=== PATIENT | female | born 1985 | race Caucasian/White ===

== ENCOUNTER 2017-05-23 17:51 | Emergency (ER) | payer OTHER ==
[~2017-05-23] VITALS: Ht 157.5 cm; Wt 78.0 kg
[2017-05-23 18:00] VITALS: Ht 157.5 cm; Wt 78.0 kg
[2017-05-23] MEDS ORDERED: SOD CHLORIDE 0.9% 1,000 ML IV STA (19:10)
[2017-05-23] MEDS ORDERED: KETOROLAC 15 MG INJ IV STA (19:10)
[2017-05-23] MEDS ORDERED: FAMOTIDINE 20 MG INJ IV STA (19:10)
[2017-05-23] MEDS ORDERED: ONDANSETRON 4 MG INJ IV STA (19:10)
--- NOTE | 2017-05-23 19:10 | ERD ---
ER Documentation Chief Complaint Date/Time DATE: 05/23/17 TIME: 19:06 Chief Complaint ap today HPI This 32-year-old female presents to emergency department with complaint of chronic ABD pain. s/p treatment for HPylori 12 months ago. no F/U Pt reports epigastric pressure and pain relived by belching denies dysyria, or blood in stool. denies vomiting LMP the beginning of month ROS All systems reviewed and are negative except as per history of present illness. PMhx/Soc Medical and Surgical Hx: pt denies Medical Hx, pt denies Surgical Hx Hx Alcohol Use: No Hx Substance Use: No Hx Tobacco Use: No Smoking Status: Never smoker Physical Exam Vitals Vital Signs Date Time Temp Pulse Resp B/P Pulse Ox O2 Delivery O2 Flow Rate FiO2 05/23/17 18:00 98.1 85 18 106/58 99 VSS triage notes reviewed Physical Exam Const: Well-nourished, well-appearing, well-hydrated, obvious discomfort holding stomach with tears running down face. No acute distress Head: Eyes: ENT: Normal External Ears, Nose and Mouth mucous membranes pharynx is pink, uvula midline without shift, tonsils not visualized Neck: Resp: Clear to auscultation bilaterally no rales wheezes or rhonchi Cardio: S1-S2, no S3-S4 Abd: Soft, tympanic to percussion, epigastric and periumbilical tenderness. Negative Marrufo sign, negative psoas sign Skin: Back: No midline or flank tenderness Ext: Neur: Awake and alert Psych: Normal Mood and Affect Result Diagram: 05/23/17200405/23/172004 Results 24 hrs Laboratory Tests Test 05/23/17 20:05 05/23/17 21:01 White Blood Count 12.810^3/ul Red Blood Count 3.9710^6/ul Hemoglobin 12.0g/dl Hematocrit 36.1% Mean Corpuscular Volume 90.9fl Mean Corpuscular Hemoglobin 30.2pg Mean Corpuscular Hemoglobin Concent 33.2g/dl Red Cell Distribution Width 12.5% Platelet Count 74083^3/UL Mean Platelet Volume 10.8fl Neutrophils % 77.3% Lymphocytes % 15.4% Monocytes % 6.4% Eosinophils % 0.5% Basophils % 0.2% Nucleated Red Blood Cells % 0.0/100WBC Neutrophils # (Manual) 1010^3/ul Lymphocytes # 2.010^3/ul Monocytes # 0.810^3/ul Eosinophils # 0.110^3/ul Basophils # 0.010^3/ul Nucleated Red Blood Cells # 0.010^3/ul Sodium Level 146mmol/L Potassium Level 3.7mmol/L Chloride Level 103mmol/L Carbon Dioxide Level 26mmol/L Anion Gap 21 Blood Urea Nitrogen 9mg/dl Creatinine 0.58mg/dl Glucose Level 91mg/dl Calcium Level 9.8mg/dl Total Bilirubin 0.1mg/dl Direct Bilirubin 0.00mg/dl Indirect Bilirubin 0.1mg/dl Aspartate Amino Transf (AST/SGOT) 96IU/L Alanine Aminotransferase (ALT/SGPT) 60IU/L Alkaline Phosphatase 81IU/L Troponin I < 0.012ng/ml Total Protein 8.4g/dl Albumin 4.6g/dl Globulin 3.80g/dl Albumin/Globulin Ratio 1.21 Lipase 150U/L Bedside Urine pH (LAB) 6.0 Bedside Urine Protein (LAB) 1+ Bedside Urine Glucose (UA) Negative Bedside Urine Ketones (LAB) Trace Bedside Urine Blood Negative Bedside Urine Nitrite (LAB) Negative Bedside Urine Leukocyte Esterase (L Negative Current Medications Medications (Trade) Dose Ordered Sig/Marty Route PRN Reason Start Time Stop Time Status Last Admin Dose Admin Sodium Chloride (NS) 1,000 ml @ 1,000 mls/hr Q1H STAT IV 05/23/17 19:10 05/23/17 20:09 DC 05/23/17 20:03 Ondansetron HCl (Zofran Inj) 4 mg ONCE STAT IV 05/23/17 19:10 05/23/17 19:14 DC 05/23/17 20:02 Famotidine (Pepcid Iv) 20 mg ONCE STAT IV 05/23/17 19:10 05/23/17 19:14 DC 05/23/17 20:02 Ketorolac Tromethamine (Toradol) 15 mg ONCE STAT IV 05/23/17 19:10 05/23/17 19:14 DC 05/23/17 20:02 Interpretation text CBC shows no evidence of hemorrhage WBCs slightly elevated at 12.8. Chemistry shows no evidence of significant electrolyte abnormalities or renal insufficiency sodium mildly elevated at 144 Liver function tests shows AST 96, ALT normal at 60, alk phos normal at 81. Coagulation study showed no concerning coagulpathy Lipase shows no evidence of acute pancreatitis Cardiac biomarkers show no evidence of acute myocardial injury or coronary ischemia Procedures/MDM EKG: Read by Dr. EATON Rate/Rhythm: Normal Sinus Rhythm at a ventricular rate of 73 bpm no ectopy QRS, ST, T-waves: No changes consistent w/ acute ischemia Impression: No evidence of ischemia or arrhythmia PROCEDURE: Ultrasound of the abdomen. CLINICAL INDICATION: Right upper quadrant pain. TECHNIQUE: Sonographic images of the abdomen were performed. COMPARISON: No pertinent prior examinations were submitted for comparison. FINDINGS: Liver: The liver is normal in echogencity and size measuring approximately 14.4 cm. The hepatic veins and portal veins are patent with appropriate directional flow. No intrahepatic ductal dilatation is seen. Gallbladder: The gallbladder is filled with stones. No pericholecystic free fluid or definite gallbladder wall thickening is identified. The common duct measures 3.1 mm. Negative sonographic Marrufo's sign is reported. Pancreas: There is limited evaluation of the pancreatic body and tail. The visualized portions of the pancreas are unremarkable. Kidneys: The right kidney measures 8.3 cm. There is normal corticomedullary differentiation. There is no evidence of renal calculus or hydronephrosis. IVC: The visualized portion of the inferior vena cava is unremarkable. Aorta: Normal in size. Free fluid: None. IMPRESSION: Cholelithiasis. .Luis Mansfield MD, MD Date Time Electronically viewed and signed by .Luis Mansfield MD, on 05/23/2017 20:40 .T/ This 32-year-old female presents to emergency department with abdominal pain, epigastric pain and pressure, pain is radiating bilaterally across to back. Patient reports symptoms have been treated 12 months ago with antibiotics suspected H pylori patient is unsure is currently on no medication and had no follow-up. Patient reports nausea, foul bitter taste in her mouth, abdominal pain bloating and belching. I have little clinical suspicion for acute OH, abdominal aortic aneurysm dissection, or pulmonary embolism. A EKG is obtained regardless showing normal sinus rhythm at a ventricular rate of 73 beats per minutes, cardiac biomarkers are normal without elevation. Remaining serology shows no acute infection or anemia slight elevation in WBCs, hyper natremia at 146. AST elevated at 96. I have little clinical suspicion for pancreatitis, appendicitis, biliary colic. Pyelonephritis, or urinary tract infection. Ultrasound reveals gallbladder is filled with stones. No pericholecystic free fluid or definite gallbladder wall thickening is identified. The common bile duct measures 3.1 mm negative sonographic Marrufo sign is reported Patient's pain is treated in emergency department with Toradol, she receives 1 L of normal saline, IV Pepcid, Zofran, and reports feeling improvement of symptoms after interventions complete. Patient will be discharged home with Bentyl for pain. Instructed to follow-up with primary physician in the next 24- 48 hours to discuss long-term treatment and options for cholelithiasis treatment. Return to emergency department for increased nausea, vomiting, pain , fever. I feel the patient is stable for discharge at this time. I have discussed results, examination findings, the treatment plan with the patient and family present prior to discharge. Indications for emergent reevaluation, side effects of medication were also discussed. All questions were answered. Patient verbalizes understanding and agrees with plan of care. Departure Diagnosis: Primary Impression: Cholelithiasis Cholelithiasis location: gallbladder Cholecystitis presence: without cholecystitis Biliary obstruction: without biliary obstruction Qualified Code : K80.20 - Calculus of gallbladder without cholecystitis without obstruction Condition: Good Patient Instructions: Gallstones [facility] Additional Instructions: Thank you for for coming to [facility] for your care today. Please ask your nurse or provider if you have questions about your care today and do not leave until all your questions have been answered. Please use any medications given as directed and follow-up with your doctor (or the doctor you were referred to) in the next 2-3 days. If you do not have a primary care doctor you may follow up at the [facility] (listed below). You may also use motrin and tylenol as needed for fever and/or pain unless instructed otherwise by your provider or nurse. Indications for more urgent follow-up have been discussed, but you may return to the Emergency Department at ANY time for any worrisome or worsening symptoms. If you have abdominal pain, please know that no test or exam you received is perfect and you should follow up within 8 hours for continued pain. If you had any imaging studies today, such as an X-Ray or CT Scan, these studies will be reviewed later by a radiologist. You will be called if there are important findings that were not identified today, so make sure the contact information you provided at registration is correct. If you received any narcotic pain control medicine today, such as Vicodin, Morphine or Dilaudid, your coordination and judgment may be affected for a number of hours. Please do not drive or operate heavy machinery, and you may want someone to assist you at home. If you were given a prescription for narcotic medication, be aware that it is very addictive- use sparingly and only if necessary. LUIS ELKINS May 23, 2017 19:10
[2017-05-23 20:26] LABS: BASOPHILS % 0.2 % (0.0-2.0); EOSINOPHILS # 0.1 10^3/ul (0.0-0.5); EOSINOPHILS % 0.5 % (0.0-7.0); HEMATOCRIT 36.1 % (37.0-47.0); LYMPHOCYTES % 15.4 % (15.0-51.0); MEAN CORPUSCULAR HEMOGLOBIN 30.2 pg (29.0-33.0); MEAN CORPUSCULAR HGB CONC 33.2 g/dl (32.0-37.0); MEAN CORPUSCULAR VOLUME 90.9 fl (82.0-101.0); MEAN PLATELET VOLUME 10.8 fl (7.4-10.4); MONOCYTE # 0.8 10^3/ul (0.3-0.9); MONOCYTES % 6.4 % (0.0-11.0); NEUTROPHILS % 77.3 % (39.0-77.0); PLATELET COUNT 209 10^3/UL (140-415); RED BLOOD COUNT 3.97 10^6/ul (4.20-5.40); RED CELL DISTRIBUTION WIDTH 12.5 % (11.5-14.5); WHITE BLOOD COUNT 12.8 10^3/ul (4.8-10.8)
--- NOTE | 2017-05-23 20:41 | RADRPT ---
PROCEDURE: Ultrasound of the abdomen. CLINICAL INDICATION: Right upper quadrant pain. TECHNIQUE: Sonographic images of the abdomen were performed. COMPARISON: No pertinent prior examinations were submitted for comparison. FINDINGS: Liver: The liver is normal in echogencity and size measuring approximately 14.4 cm. The hepatic vei ns and portal veins are patent with appropriate directional flow. No intrahepatic ductal dilatation is seen. Gallbladder: The gallbladder is filled with stones. No pericholecystic free fluid or definite gall bladder wall thickening is identified. The common duct measures 3.1 mm. Negative sonographic Marrufo' s sign is reported. Pancreas: There is limited evaluation of the pancreatic body and tail. The visualized portions of the pancreas are unremarkable. Kidneys: The right kidney measures 8.3 cm. There is normal corticomedullary differentiation. There is no evidence of renal calculus or hydronephrosis. IVC: The visualized portion of the inferior vena cava is unremarkable. Aorta: Normal in size. Free fluid: None. IMPRESSION: Cholelithiasis. RPTAT: HIKT .Luis Mansfield MD, Date Time Electronically viewed and signed by .Luis Mansfield MD, on 05/23/2017 20:40 .T/
[2017-05-23 20:52] LABS: ALBUMIN 4.6 g/dl (3.3-4.9); ALBUMIN/GLOBULIN RATIO 1.21; BILIRUBIN,INDIRECT 0.1 mg/dl (0-1.1); BILIRUBIN,TOTAL 0.1 mg/dl (0.2-1.3); CALCIUM 9.8 mg/dl (8.4-10.2); CREATININE 0.58 mg/dl (0.44-1.00); POTASSIUM 3.7 mmol/L (3.5-5.1); TOTAL PROTEIN 8.4 g/dl (6.1-8.1)
[2017-05-23 20:56] LABS: URINE BLOOD (Dip) POC Negative (NEGATIVE)
[2017-05-23] MEDS ORDERED: DICY10CA60 PO (21:49)
[2017-05-23 21:58] VITALS: BP 108/63; PULSE 66; RESP 18
== END 2017-05-23 21:59 | disposition home or self-care (01) ==
LOC: FTE 17:51
DX: K80.20 Calculus of gallbladder without cholecystitis without obstruction (principal)
CPT/HCPCS: 36415; 76705; 80053; 81003; 83690; 84484; 85025; 93005; 96374; 96375; 99285; J1885; J2405; J7030